=== PATIENT | male | born 1965 | race Two or more races ===

== ENCOUNTER 2019-05-05 19:15 | Inpatient (IN) | payer MEDICAID ==
[~2019-05-05] VITALS: Ht 170.2 cm; Wt 78.9 kg
[2019-05-05 19:15] VITALS: BP 172/82
[2019-05-05] MEDS ORDERED: Metoprolol 25mg tab ORAL ONE (19:30)
[2019-05-05] MEDS ORDERED: Metoprolol 25mg tab ONE (19:41)
--- NOTE | 2019-05-05 20:03 | Diagnostic Imaging Report ---
Indications: Seizures Technique: Spiral acquisitions obtained through the brain. Angled axial and coronal 5 x 5 mm slices were reconstructed. Total dose length product 1269 mGycm. CTDI vol(s) 62 mGy. Dose reduction achieved using automated exposure control Comparison: None. Findings: No acute intracranial hemorrhage or edema. No mass effect nor midline shift. Normal size ventricles and extra axial CSF spaces. Normal garland-white differentiation. Intact calvarium. Visualized orbits and sinuses are unremarkable. Impression: Negative This agrees with the preliminary interpretation provided overnight by [facility] teleradiology service. The CT scanner at [facility] is accredited by the [employer] and the scans are performed using protocols designed to limit radiation exposure to as low as reasonably achievable to attain images of sufficient resolution adequate for diagnostic evaluation.
[2019-05-05 20:05] LABS: BASOPHILS % (AUTO) 1.5 % (0.0-2.0); EOSINOPHILS % (AUTO) 0.9 % (0.0-3.0); HEMATOCRIT 48.1 % (42.0-52.0); HEMOGLOBIN 16.3 G/DL (14.2-18.0); LYMPHOCYTES % (AUTO) 14.9 % (20.0-45.0); MEAN CORPUSCULAR VOLUME 83 FL (80-99); MONOCYTES % (AUTO) 6.3 % (1.0-10.0); NEUTROPHILS % (AUTO) 76.4 % (45.0-75.0); PLATELET COUNT 196 K/UL (150-450); RED BLOOD COUNT 5.77 M/UL (4.70-6.10); RED CELL DISTRIBUTION WIDTH 12.4 % (11.6-14.8); WHITE BLOOD COUNT 7.2 K/UL (4.8-10.8)
[2019-05-05 20:43] LABS: ANION GAP 23 mmol/L (5-15); BLOOD UREA NITROGEN 10 mg/dL (7-18); CALCIUM 7.8 MG/DL (8.5-10.1); CARBON DIOXIDE 16 MMOL/L (21-32); CHLORIDE 103 MMOL/L (98-107); POTASSIUM 4.2 MMOL/L (3.5-5.1); SODIUM 142 MMOL/L (136-145)
[2019-05-05 20:54] LABS: ALANINE AMINOTRANSFERASE 72 U/L (12-78); ALBUMIN 3.1 G/DL (3.4-5.0); ALBUMIN/GLOBULIN RATIO 0.7 (1.0-2.7); ALKALINE PHOSPHATASE 142 U/L (46-116); ASPARTATE AMINO TRANSFERASE 89 U/L (15-37); BILIRUBIN,TOTAL 0.4 MG/DL (0.2-1.0)
[2019-05-05] MEDS ORDERED: Insulin Human Regular 100units/ml 3ml IV ONE (21:15)
[2019-05-05] MEDS ORDERED: Omnipaue 350mg/ml 100ml vial INJ PRN (21:30)
[2019-05-05] MEDS ORDERED: LORazepam Inj 2mg/ml 1ml IV ONE (21:30)
[2019-05-05 21:35] VITALS: BP 150/84
--- NOTE | 2019-05-05 21:38 | Emergency Room Report ---
History of Present Illness General Chief Complaint: Seizure Source: Patient, EMS (JuanDerek salazar DO) Present Illness HPI Patient initially presents with reports of visualized seizure activity Upon arrival the patient reports that he has never had a seizure before He does drink alcohol regularly and does report drinking alcohol earlier today Denies any headache denies any chest pain he does feel anxious and has palpitations denies any vomiting or diarrhea (Derek Combs DO) Allergies: Coded Allergies: No Known Allergies (Unverified , 05/05/19) Patient History Past Medical History: see triage record Reviewed Nursing Documentation: PMH: Agreed; PSxH: Agreed (Derek Combs DO) Nursing Documentation-PMH Past Medical History: No History, Except For Hx Diabetes: Yes Hx Seizures: Yes (Derek Combs DO) Review of Systems All Other Systems: negative except mentioned in HPI (JuanDerek salazar DO) Physical Exam Vital Signs Date Time Temp Pulse Resp B/P (MAP) Pulse Ox O2 Delivery O2 Flow Rate FiO2 05/05/19 19:09 98.8 130 16 170/100 (123) 98 Room Air 05/05/19 19:15 98 Sp02 EP Interpretation: reviewed, normal General Appearance: other - Anxious Head: normocephalic, atraumatic Eyes: bilateral eye PERRL, bilateral eye EOMI ENT: hearing grossly normal, normal pharynx, TMs + canals normal, uvula midline Neck: full range of motion, supple, no meningismus, no bony tend Respiratory: no respiratory distress, no retraction, no accessory muscle use, crackles - Bilaterally Cardiovascular #1: normal peripheral pulses, no edema, no gallop, no JVD, no murmur, tachycardia Gastrointestinal: normal bowel sounds, non tender, soft, no mass, no organomegaly, non-distended, no guarding, no hernia, no pulsatile mass, no rebound Genitourinary: no CVA tenderness Musculoskeletal: normal inspection Neurologic: motor strength/tone normal, 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 nml as tested, oriented x3 , sensory intact, responsive Psychiatric: mood/affect normal Skin: no rash Lymphatic: normal inspection, no adenopathy (Derek Combs DO) Medical Decision Making Diagnostic Impression: Primary Impression: alcohol disease Additional Impressions: diabetes seizure Alcohol withdrawal Qualified Codes: F10.230 - Alcohol dependence with withdrawal, uncomplicated Community acquired pneumonia Qualified Codes: J18.9 - Pneumonia, unspecified organism Alcoholic fatty liver Acidosis ER Course Given the patient's initial history and presentation multiple differentials and consideration including but not limited to dehydration, withdrawal symptoms acidosis, Patient's glucose level is not significantly elevated however patient shows signs of acidosis ABG is obtained and does show Decreased pH Also showing increased lactic acid patient's x-ray was abnormal on the right side and CT Shows further findings with multiple differentials please refer to the note for specifics Patient has also presented with questionable seizure therefore CT was obtained which does not show any acute process at this time patient has multiple abnormal findings and requires inpatient care Labs Test 05/05/19 19:38 05/05/19 20:18 05/05/19 21:00 White Blood Count 7.2 K/UL (4.8-10.8) Red Blood Count 5.77 M/UL (4.70-6.10) Hemoglobin 16.3 G/DL (14.2-18.0) Hematocrit 48.1 % (42.0-52.0) Mean Corpuscular Volume 83 FL (80-99) Mean Corpuscular Hemoglobin 28.3 PG (27.0-31.0) Mean Corpuscular Hemoglobin Concent 34.0 G/DL (32.0-36.0) Red Cell Distribution Width 12.4 % (11.6-14.8) Platelet Count 196 K/UL (150-450) Mean Platelet Volume 5.7 FL (6.5-10.1) Neutrophils (%) (Auto) 76.4 % (45.0-75.0) Lymphocytes (%) (Auto) 14.9 % (20.0-45.0) Monocytes (%) (Auto) 6.3 % (1.0-10.0) Eosinophils (%) (Auto) 0.9 % (0.0-3.0) Basophils (%) (Auto) 1.5 % (0.0-2.0) Sodium Level 142 MMOL/L (136-145) Potassium Level 4.2 MMOL/L (3.5-5.1) Chloride Level 103 MMOL/L (98-107) Carbon Dioxide Level 16 MMOL/L (21-32) Anion Gap 23 mmol/L (5-15) Blood Urea Nitrogen 10 mg/dL (7-18) Creatinine 1.0 MG/DL (0.55-1.30) Estimat Glomerular Filtration Rate > 60 mL/min (>60) Glucose Level 305 MG/DL (74-106) Calcium Level 7.8 MG/DL (8.5-10.1) Total Bilirubin 0.4 MG/DL (0.2-1.0) Aspartate Amino Transf (AST/SGOT) 89 U/L (15-37) Alanine Aminotransferase (ALT/SGPT) 72 U/L (12-78) Alkaline Phosphatase 142 U/L (46-116) Total Protein 7.5 G/DL (6.4-8.2) Albumin 3.1 G/DL (3.4-5.0) Globulin 4.4 g/dL Albumin/Globulin Ratio 0.7 (1.0-2.7) Serum Alcohol 286 mg/dL Arterial Blood pH 7.316 (7.350-7.450) Arterial Blood Partial Pressure CO2 26.3 mmHg (35.0-45.0) Arterial Blood Partial Pressure O2 90.9 mmHg (75.0-100.0) Arterial Blood HCO3 13.1 mmol/L (22.0-26.0) Arterial Blood Oxygen Saturation 96.0 % (95-100) Arterial Blood Base Excess -11.2 (-2-2) Luis Test Positive (Derek Combs DO) ER Course Patient signed out to me. He came in with possible seizure secondary to alcohol. He is getting tremulous and was given Ativan here. CT scan showed a right upper lobe infiltrate. No pulmonary embolism. Antibiotics given. Patient will be admitted because antibiotics and monitoring. I discussed the case with Dr. Spaulding who will admit. (Edmund Martines MD) EKG Diagnostic Results Rate: normal Rhythm: NSR ST Segments: no acute changes (Derek Combs DO) Rhythm Strip Diag. Results EP Interpretation: yes Rate: 88 Rhythm: NSR, no PVC's, no ectopy (Derek Combs DO) Chest X-Ray Diagnostic Results Chest X-Ray Diagnostic Results : Chest X-Ray Ordered: Yes # of Views/Limited/Complete: 1 View Indication: Chest Pain EP Interpretation: Yes Interpretation: no pneumothorax, other - Right upper lobe increased markings , heart size normal Impression: Other - Right upper lobe abnormal marking Electronically Signed by: Derek Combs DO (Derek Combs DO) CT/MRI/US Diagnostic Results CT/MRI/US Diagnostic Results : Impression CT chestImpression: No evidence of acute pulmonary embolus or other acute thoracic vascular pathology 3.5 x 2.2 x 2 cm right apical opacity linear opacities and interstitial septal thickening. Presence of associated bronchiectasis makes it most likely that this represents an area of confluent fibrosis/cicatrization. However, this could also represent an area of neoplasm or acute infiltrate. There is some central cavitation which probably just represents an area of bronchiectasis, but questionable nodule within the central lucency raises possibility of a fungus ball, so mycotic etiologies should also be considered. Other scattered areas of scarring demonstrated on the right. Nonspecific minimal groundglass opacity is seen in the left lower lobe. Fatty liver This agrees with the preliminary interpretation provided overnight by [facility] telerad[facility] service. CT head:NAD (Derek Combs DO) CT/MRI/US Diagnostic Results : Imaging Test Ordered: CT chest Impression Read by radiologist. Consolidation in the posterior right upper lobe. Fatty liver. (Edmund Martines MD) Last Vital Signs Date Time Temp Pulse Resp B/P (MAP) Pulse Ox O2 Delivery O2 Flow Rate FiO2 05/05/19 19:15 128 16 Room Air 98 05/05/19 19:15 98.8 172/82 98 Status: improved (Derek Combs DO) Status: improved (Edmund Martines MD) Disposition: ADMITTED INPATIENT Condition: Serious Scripts Unable to Obtain Active Prescriptions or Reported Meds Referrals: [facility] Huseyin Young. [facility] Derek Combs DO May 05, 2019 21:38 Edmund Martines MD May 05, 2019 23:57
[2019-05-05] MEDS ORDERED: Thiamine 100mg tab ORAL ONE (22:00)
[2019-05-05] MEDS ORDERED: cefTRIAXone 1 GM in NS 55 ML IVPB ONE (22:30)
[2019-05-05] MEDS ORDERED: Azithromycin 500 MG in NS 275 ML IV ONE (22:30)
--- NOTE | 2019-05-05 22:31 | Diagnostic Imaging Report ---
ndication: Dyspnea, chest pain, shortness of breath Technique: IV administration nonionic contrast. Spiral acquisitions obtained from the lung bases to the lung apices. Multiplanar and 3-D reconstructions were generated. Total dose length product 695 mGycm. CTDIvol(s) 82 mGy. Dose reduction achieved using automated exposure control Comparison: none Findings: There is adequate opacification of the pulmonary arteries. No intraluminal filling defects or other findings to suggest acute pulmonary embolus demonstrated. Pulmonary arteries are normal in caliber. There is no evidence of right ventricular dilatation. No evidence of thoracic aortic aneurysm or dissection. Normal branching anatomy and caliber of the great neck vessels. The lungs demonstrate a masslike opacity with a central cavitation, possibly a central nodular opacity within the cavitation. This opacity measures approximately 3.5 x 2.2 x 2 cm. There is some associated adjacent pleural thickening. There is some associated bronchiectasis within and adjacent to the lesion. More ill-defined linear opacities are seen adjacent to the lesion. There is some interstitial septal thickening in the right lung apex. Few ill-defined reticular opacities are seen in the anterior inferior right upper lobe. Some scarring is seen in the anterior and medial right lower lobe. Minimal groundglass opacity is seen in the left lower lobe. The heart is upper limits of normal in size. No pericardial effusion. No mediastinal or hilar mass or adenopathy. The thyroid is unremarkable. No axillary or chest wall mass or adenopathy. Included upper abdominal anatomy demonstrates diffuse marked hepatic low-attenuation, consistent with fatty change. Impression: No evidence of acute pulmonary embolus or other acute thoracic vascular pathology 3.5 x 2.2 x 2 cm right apical opacity linear opacities and interstitial septal thickening. Presence of associated bronchiectasis makes it most likely that this represents an area of confluent fibrosis/cicatrization. However, this could also represent an area of neoplasm or acute infiltrate. There is some central cavitation which probably just represents an area of bronchiectasis, but questionable nodule within the central lucency raises possibility of a fungus ball, so mycotic etiologies should also be considered. Other scattered areas of scarring demonstrated on the right. Nonspecific minimal groundglass opacity is seen in the left lower lobe. Fatty liver This agrees with the preliminary interpretation provided overnight by [facility] teleradiology service. The CT scanner at [facility] is accredited by the [employer] and the scans are performed using protocols designed to limit radiation exposure to as low as reasonably achievable to attain images of sufficient resolution adequate for diagnostic evaluation.
[2019-05-06] MEDS: D5NS 1,000 ML IV SCH ×3 (01:36→21:01)
[2019-05-06] MEDS ORDERED: LORazepam Inj 2mg/ml 1ml IV PRN (04:00)
[2019-05-06] MEDS ORDERED: Pneumococcal Vaccine 25mcg/0.5ml IM ONE ×2 (07:15→09:00)
[2019-05-06] MEDS ORDERED: chlordiazePOXIDE 25mg Cap ORAL PRN (07:30)
[2019-05-06 08:00] VITALS: BP 144/89
[2019-05-06] MEDS: chlordiazePOXIDE 5mg Cap ORAL PRN ×2 (08:20→17:45)
[2019-05-06] MEDS ORDERED: Carvedilol 6.25mg Tab ORAL SCH (09:00)
[2019-05-06 09:01] LABS: ANION GAP 18 mmol/L (5-15); BLOOD UREA NITROGEN 7 mg/dL (7-18); CALCIUM 7.4 MG/DL (8.5-10.1); CARBON DIOXIDE 18 MMOL/L (21-32); CHLORIDE 103 MMOL/L (98-107); CREATININE 0.9 MG/DL (0.55-1.30); POTASSIUM 4.2 MMOL/L (3.5-5.1); SODIUM 139 MMOL/L (136-145)
[2019-05-06 09:04] LABS: PHOSPHORUS 1.8 MG/DL (2.5-4.9)
--- NOTE | 2019-05-06 09:48 | Diagnostic Imaging Report ---
Indication: Chest pain Technique: One view of the chest Comparison: none Findings: Masslike opacity is seen in the right lung apex. The lungs and pleural spaces are otherwise clear. Heart size is normal. Impression: Right apical masslike opacity. Please refer to subsequent CT scan report No acute process otherwise
[2019-05-06] MEDS: Carvedilol 12.5mg tab ORAL SCH ×2 (09:56→21:05)
[2019-05-06] MEDS: Thiamine 100mg tab ORAL SCH (09:56)
[2019-05-06] MEDS: Morphine Sulfate 2mg/ml Inj(IV/IM USE ONLY) IVP PRN ×2 (09:58→14:16)
[2019-05-06] MEDS: Levemir Flexpen SUBQ SCH ×2 (10:06→21:09)
--- NOTE | 2019-05-06 11:15 | History and Physical Report ---
DATE OF ADMISSION: 05/05/2019 REASON FOR ADMISSION: 1. Alcohol dependency. 2. Alcohol withdrawal seizure. 3. Pneumonia. HISTORY OF PRESENT ILLNESS: The patient is a 53-year-old gentleman, who presented to the emergency room overnight for further evaluation and care after having a seizure. The patient states that he drinks heavily every day. Had never had a seizure before. Again, drinks heavily on a regular basis. No current headache, chest pain, nausea, vomiting, diarrhea, or shortness of breath. The patient is quite jittery. Feeling he is going through withdrawals. Unclear exactly how much alcohol he drinks per day. He was noted to have a right upper lobe possible pneumonia. ALLERGIES: No known drug allergies. PAST MEDICAL HISTORY: 1. Alcohol dependency. 2. Hypertension. 3. Diabetes mellitus. FAMILY HISTORY: Positive for hypertension. PAST SURGICAL HISTORY: Noncontributory. LABORATORY DATA: Laboratories dated May 05, 2019, sodium 142, potassium 4.2, glucose 305. White cell count 7.2, hemoglobin 16.3, and platelet count 196. PHYSICAL EXAMINATION: VITAL SIGNS: Blood pressure 154/86, respiratory rate 17, pulse 117, temperature 98.4, saturating 99% oxygen on room air. GENERAL: The patient is awake, alert, anxious. HEENT: Extraocular muscles intact. NECK: No lymphadenopathy noted. CARDIOVASCULAR: S1, S2. Tachycardic. PULMONARY: Mild upper rhonchi with basilar rales. ABDOMEN: Nondistended and nontender. EXTREMITIES: No edema. ASSESSMENT AND PLAN: 1. Alcohol withdrawal seizure. At this time, the patient has been given p.r.n. Librium and Ativan. He is currently stable. Will be aggressively hydrated. Will be placed on thiamine and folate to avoid Wernicke-Korsakoff syndrome. We will monitor carefully. 2. Hypertension. We will adjust medications as appropriate. 3. Diabetes mellitus. We will place the patient on metformin and insulin sliding scale, along with Levemir. 4. Pneumonia, right upper lobe and alcoholic. I have consulted Pulmonary for further evaluation and care to rule out for and consider possibility of TB. 5. Dehydration. We will continue IV fluids. 6. GI prophylaxis with famotidine. 7. DVT prophylaxis with SCDs. Seth Richmond MD DR: JHONATHAN JOB#: [id number] CC:
[2019-05-06 12:00] VITALS: BP 139/86
--- NOTE | 2019-05-06 12:13 | Consultation ---
History of Present Illness General Date patient seen: May 06, 2019 Chief Complaint: Seizure Present Illness HPI 53 y/o M with hx of Dm2, ETOH abuse presented to ED on 05/05 with witnessed seizure activity; new onset seizure. He drinks alcohol regularly and drank day of admission. Denies headache, chest pain, vomiting, diarrhea, SOB. Allergies: Coded Allergies: No Known Allergies (Unverified , 05/05/19) Medication History Unable to Obtain Active Prescriptions or Reported Meds Patient History Healthcare decision maker Resuscitation status Full Code Advanced Directive on File Patient History Narrative Pmhx: as above Shx:He does drink alcohol regularly Fhx: non contributory Review of Systems All Other Systems: negative except mentioned in HPI Physical Exam Physical Exam Narrative GENERAL: The patient is awake, alert, anxious. HEENT: Extraocular muscles intact. NECK: No lymphadenopathy noted. CARDIOVASCULAR: S1, S2. Tachycardic. PULMONARY: Mild upper rhonchi with basilar rales. ABDOMEN: Nondistended and nontender. EXTREMITIES: No edema. Last 24 Hour Vital Signs Date Time Temp Pulse Resp B/P (MAP) Pulse Ox O2 Delivery O2 Flow Rate FiO2 05/06/19 09:56 117 154/86 05/06/19 08:30 Room Air 05/06/19 08:00 111 05/06/19 04:00 117 05/06/19 04:00 Room Air 05/06/19 01:42 Room Air 05/06/19 01:35 108 05/06/19 01:10 98.4 104 17 154/86 99 Room Air 99 05/05/19 21:35 98.4 102 17 150/84 99 Room Air 98 05/05/19 19:15 128 16 Room Air 98 05/05/19 19:15 98.8 129 16 172/82 98 Room Air 98 05/05/19 19:09 98.8 130 16 170/100 (123) 98 Room Air Intake and Output 05/05/19 05/06/19 18:59 06:59 Intake Total 5070 ml Output Total 950 ml Balance 4120 ml Intake Oral 120 ml IV Total 4830 ml Other 120 ml Output Urine Total 950 ml # Voids 2 Laboratory Tests Test 05/05/19 19:38 05/05/19 20:18 05/05/19 21:00 05/05/19 22:10 White Blood Count 7.2 K/UL (4.8-10.8) Red Blood Count 5.77 M/UL (4.70-6.10) Hemoglobin 16.3 G/DL (14.2-18.0) Hematocrit 48.1 % (42.0-52.0) Mean Corpuscular Volume 83 FL (80-99) Mean Corpuscular Hemoglobin 28.3 PG (27.0-31.0) Mean Corpuscular Hemoglobin Concent 34.0 G/DL (32.0-36.0) Red Cell Distribution Width 12.4 % (11.6-14.8) Platelet Count 196 K/UL (150-450) Mean Platelet Volume 5.7 FL (6.5-10.1) L Neutrophils (%) (Auto) 76.4 % (45.0-75.0) H Lymphocytes (%) (Auto) 14.9 % (20.0-45.0) L Monocytes (%) (Auto) 6.3 % (1.0-10.0) Eosinophils (%) (Auto) 0.9 % (0.0-3.0) Basophils (%) (Auto) 1.5 % (0.0-2.0) Sodium Level 142 MMOL/L (136-145) Potassium Level 4.2 MMOL/L (3.5-5.1) Chloride Level 103 MMOL/L (98-107) Carbon Dioxide Level 16 MMOL/L (21-32) L Anion Gap 23 mmol/L (5-15) H Blood Urea Nitrogen 10 mg/dL (7-18) Creatinine 1.0 MG/DL (0.55-1.30) Estimat Glomerular Filtration Rate > 60 mL/min (>60) Glucose Level 305 MG/DL (74-106) H Calcium Level 7.8 MG/DL (8.5-10.1) L Total Bilirubin 0.4 MG/DL (0.2-1.0) Aspartate Amino Transf (AST/SGOT) 89 U/L (15-37) H Alanine Aminotransferase (ALT/SGPT) 72 U/L (12-78) Alkaline Phosphatase 142 U/L (46-116) H Total Protein 7.5 G/DL (6.4-8.2) Albumin 3.1 G/DL (3.4-5.0) L Globulin 4.4 g/dL Albumin/Globulin Ratio 0.7 (1.0-2.7) L Serum Alcohol 286 mg/dL Arterial Blood pH 7.316 (7.350-7.450) Arterial Blood Partial Pressure CO2 26.3 mmHg (35.0-45.0) L Arterial Blood Partial Pressure O2 90.9 mmHg (75.0-100.0) Arterial Blood HCO3 13.1 mmol/L (22.0-26.0) *L Arterial Blood Oxygen Saturation 96.0 % (95-100) Arterial Blood Base Excess -11.2 (-2-2) *L Luis Test Positive Lactic Acid Level 3.70 mmol/L (0.4-2.0) H Test 05/05/19 23:35 05/06/19 04:00 05/06/19 08:30 Lactic Acid Level 2.80 mmol/L (0.66-2.22) H 3.50 mmol/L (0.4-2.0) H 3.00 mmol/L (0.66-2.22) H Sodium Level 139 MMOL/L (136-145) Potassium Level 4.2 MMOL/L (3.5-5.1) Chloride Level 103 MMOL/L (98-107) Carbon Dioxide Level 18 MMOL/L (21-32) L Anion Gap 18 mmol/L (5-15) H Blood Urea Nitrogen 7 mg/dL (7-18) Creatinine 0.9 MG/DL (0.55-1.30) Estimat Glomerular Filtration Rate > 60 mL/min (>60) Glucose Level 268 MG/DL (74-106) H Calcium Level 7.4 MG/DL (8.5-10.1) L Phosphorus Level 1.8 MG/DL (2.5-4.9) L Magnesium Level 1.7 MG/DL (1.8-2.4) L Height (Feet): 5 Height (Inches): 7.00 Weight (Pounds): 180 Medications Current Medications Medications (Trade) Dose Ordered Sig/Ricky Route PRN Reason Start Time Stop Time Status Last Admin Dose Admin Acetaminophen (Tylenol) 650 mg Q4H PRN ORAL Mild Pain (Pain Scale 1-3) 05/06/19 00:00 06/05/19 00:00 Azithromycin 500 mg/Sodium Chloride 275 ml @ 275 mls/hr QHS IV 05/06/19 21:00 05/13/19 20:59 Carvedilol (Coreg) 12.5 mg Q12HR ORAL 05/06/19 09:00 06/05/19 08:59 05/06/19 09:56 Ceftriaxone Sodium 1 gm/ Sodium Chloride 55 ml @ 110 mls/hr Q24H IVPB 05/06/19 22:00 05/13/19 21:59 Chlordiazepoxide (Librium) 5 mg Q8H PRN ORAL For Anxiety 1st choice 05/06/19 07:45 05/13/19 07:44 05/06/19 08:20 Chlordiazepoxide (Librium) 20 mg Q8H PRN ORAL For Anxiety 1st choice 05/06/19 07:45 05/13/19 07:29 05/06/19 08:20 Dextrose (Dextrose 50%) 25 ml Q30M PRN IV Hypoglycemia 05/06/19 00:00 06/05/19 00:00 Dextrose (Dextrose 50%) 50 ml Q30M PRN IV Hypoglycemia 05/06/19 00:00 06/05/19 00:00 Dextrose/Sodium Chloride 1,000 ml @ 100 mls/hr Q10H IV 05/06/19 00:55 06/05/19 00:54 05/06/19 10:41 Famotidine (Pepcid) 40 mg DAILY ORAL 05/06/19 09:00 06/05/19 08:59 05/06/19 09:56 Influenza Virus Vaccine Quadrival (Flu Vaccine) 0.5 ml ONCE ONCE IM 05/06/19 07:15 05/06/19 07:16 UNV Insulin Aspart (NovoLOG) BEFORE MEALS AND HS SUBQ 05/06/19 11:30 06/05/19 11:29 Insulin Detemir (Levemir) 8 units Q12HR SUBQ 05/06/19 09:00 06/05/19 08:59 05/06/19 10:06 Iohexol (Omnipaque) 100 mg NOW PRN INJ Radiology Procedure 05/05/19 21:30 05/07/19 21:23 Lorazepam (Ativan 2mg/ml 1ml) 1 mg Q6HR PRN IV For Anxiety 05/06/19 04:00 05/13/19 03:59 05/06/19 04:26 Morphine Sulfate (Morphine Sulfate) 1 mg Q4H PRN IVP Moderate Pain (Pain Scale 4-6) 05/06/19 07:30 05/13/19 07:29 05/06/19 09:58 Ondansetron HCl (Zofran) 4 mg Q6H PRN IVP Nausea & Vomiting 05/06/19 00:00 06/05/19 00:00 05/06/19 03:24 Pneumococcal Polyvalent Vaccine (Pneumovax) 0.5 ml ONCE ONCE IM 05/06/19 07:15 05/06/19 07:16 UNV Thiamine HCl (Vitamin B1) 100 mg DAILY ORAL 05/06/19 09:00 06/05/19 08:59 05/06/19 09:56 Assessment/Plan Assessment/Plan: Abx: Ceftriaxone 05/05- Azithromycin 05/05- Assessment: New onset seizure- likely from alcohol- r/o intracranial pathology -CT head wo: no acute findings Afebrile No leukocytosis Cavitary lung lesion w/ fibrosis- this is likely residual from prior pulmonary TB which has now been treated and presence of fungal ball; patient with no cough , night sweats, fever, or wt loss- doubt Active/recurrence TB -CTA chest: No evidence of acute pulmonary embolus or other acute thoracic vascular pathology. 3.5 x 2.2 x 2 cm right apical opacity linear opacities and interstitial septal thickening. Presence of associated bronchiectasis makes it most likely that this represents an area of confluent fibrosis/cicatrization. However, this could also represent an area of neoplasm or acute infiltrate. There is some central cavitation which probably just represents an area of bronchiectasis, but questionable nodule within the central lucency raises possibility of a fungus ball, so mycotic etiologies should also be considered. Other scattered areas of scarring demonstrated on the right. Nonspecific minimal groundglass opacity is seen in the left lower lobe. Fatty liver -CXR: Right apical masslike opacity. Please refer to subsequent CT scan report. No acute process otherwise hx of pulmonary TB- treated about 10 years ago Dm2 ETOH abuse Plan: -D/c empiric Ceftriaxone #2 and azithromycin #2 and monitor off abx -patient with no cough, fever or leukocytosis -f/u cx -Monitor CBC/CMP, temperatures -sp cx -HIV ab, Fungitell, Asp Ag, hep panel -consider MRI brain Thank you for conulting [facility]. Will continue to follow along with you. Discussed with ROSSI. Nikky Vogel M.D. May 06, 2019 12:13
[2019-05-06] MEDS: NovoLOG Insulin Flexpen SUBQ SCH ×3 (12:56→21:08)
--- NOTE | 2019-05-06 13:05 | Cardiology Report ---
APPROVED REPORT EKG Measurement Heart [id number] Sinus tachycardia T wave abnormality, consider inferior ischemia Abnormal ECG
[2019-05-06] MEDS ORDERED: metroNIDAZOLE 500mg tab ORAL SCH (14:00)
[2019-05-06 16:00] VITALS: BP 154/84
--- NOTE | 2019-05-06 16:30 | Consultation ---
DATE OF CONSULTATION: 05/06/2019 PULMONARY CONSULTATION CONSULTING PHYSICIAN: Fransico Orta M.D. HISTORY OF PRESENT ILLNESS: This is a 53-year-old male, who came to the hospital after having a seizure. The patient reports this is the first time he had seizure and he reports heavy alcohol use. He was noted to have an abnormal x-ray suspicious for a right lung pneumonia. Review of imaging studies shows right apical masslike density, which on CT chest shows scarring in the anterior and medial right lower lobe. There is a masslike opacity with cavitation in the right upper lobe. PAST HISTORY: Alcohol use, hypertension, diabetes mellitus. PREVIOUS SURGERIES: None reported. REVIEW OF SYSTEMS: Denies any headaches, hematemesis, melena, hematochezia, night sweats, or weight loss. PHYSICAL EXAMINATION: GENERAL: Reveals a 53-year-old male. HEENT: Unremarkable. LUNGS: Clear breath sounds bilaterally. HEART: Normal heart sounds. ABDOMEN: Soft. EXTREMITIES: There is no edema. LABORATORY DATA: Lab testing shows lactic acid 3.7, now 3.0. ABGs pH 7.31, pCO2 26, pO2 90, glucose 268. White count 7.2. IMPRESSION: 1. Right upper lobe cavitary lesion. 2. Alcohol dependence. 3. Hypertension. DISCUSSION: 1. Admit to the hospital. 2. We will place on respiratory isolation. 3. He will need PPD and TB QuantiFERON gold. 4. We will get sputum for AFB. This may most likely be an anaerobic right upper lobe cavity due to his history of alcohol abuse. However tuberculosis. Fransico Orta M.D. DR: LACIE JOB#: [id number] CC:
[2019-05-06 20:00] VITALS: BP 146/78
[2019-05-06] MEDS ORDERED: Azithromycin 500 MG in NS 275 ML IV SCH (21:00)
[2019-05-06] MEDS ORDERED: cefTRIAXone 1 GM in NS 55 ML IVPB SCH (22:00)
[2019-05-07] VITALS: BP 142/75
[2019-05-07 04:00] VITALS: BP 140/79
[2019-05-07] MEDS: D5NS 1,000 ML IV SCH (06:30)
[2019-05-07] MEDS: NovoLOG Insulin Flexpen SUBQ SCH ×4 (06:35→20:14)
[2019-05-07 06:38] LABS: ANION GAP 14 mmol/L (5-15); BLOOD UREA NITROGEN 3 mg/dL (7-18); CALCIUM 7.8 MG/DL (8.5-10.1); CARBON DIOXIDE 20 MMOL/L (21-32); CHLORIDE 102 MMOL/L (98-107); CREATININE 0.8 MG/DL (0.55-1.30); POTASSIUM 3.9 MMOL/L (3.5-5.1); SODIUM 136 MMOL/L (136-145)
[2019-05-07] MEDS: Morphine Sulfate 2mg/ml Inj(IV/IM USE ONLY) IVP PRN ×2 (06:53→13:27)
--- NOTE | 2019-05-07 07:48 | Nephrology Progress Note ---
Assessment/Plan Assessment/Plan: A/P 1. Alcohol withdrawal seizure. - resolved, MRI Brain - DC tomorrow 2. Hypertension. Stable 3. Diabetes mellitus. metformin and insulin sliding scale, along with Levemir. 4. Pneumonia, right upper lobe and alcoholic. - appreciate ID. Off all Abx, monitor 5. Dehydration. continue IV fluids. 6. GI prophylaxis with famotidine. 7. DVT prophylaxis with SCDs. Subjective Date patient seen: May 07, 2019 Time patient seen: 07:45 ROS Limited/Unobtainable: No Allergies: Coded Allergies: No Known Allergies (Unverified , 05/05/19) Subjective Patient much improved and in no distress Objective Last 24 Hour Vital Signs Date Time Temp Pulse Resp B/P (MAP) Pulse Ox O2 Delivery O2 Flow Rate FiO2 05/07/19 07:23 98.1 05/07/19 04:00 98.1 92 20 140/79 (99) 98 05/07/19 04:00 85 05/07/19 03:58 Room Air 05/07/19 00:00 Room Air 05/07/19 00:00 98.2 89 16 142/75 (97) 98 05/06/19 23:45 88 05/06/19 21:05 97 146/78 05/06/19 20:00 Room Air 05/06/19 20:00 98.1 97 20 146/78 (100) 100 05/06/19 19:45 99 05/06/19 16:11 105 05/06/19 16:10 Room Air 05/06/19 16:00 99.6 106 20 154/84 (107) 99 05/06/19 12:00 113 05/06/19 12:00 Room Air 05/06/19 12:00 98.7 100 20 139/86 (103) 98 05/06/19 09:56 117 154/86 05/06/19 08:30 Room Air 05/06/19 08:00 98.0 118 22 144/89 (107) 97 05/06/19 08:00 111 Intake and Output 05/06/19 05/07/19 19:00 07:00 Intake Total 460 ml 1300 ml Output Total 850 ml Balance -390 ml 1300 ml Intake Oral 360 ml 300 ml IV Total 100 ml 1000 ml Output Urine Total 850 ml # Voids 3 # Bowel Movements 3 Laboratory Tests 05/06/19 08:30: Sodium Level 139, Potassium Level 4.2, Chloride Level 103, Carbon Dioxide Level 18L, Anion Gap 18H, Blood Urea Nitrogen 7, Creatinine 0.9, Estimat Glomerular Filtration Rate > 60, Glucose Level 268H, Lactic Acid Level 3.00H, Calcium Level 7.4L, Phosphorus Level 1.8L, Magnesium Level 1.7L 05/06/19 08:35: HIV (1&2) Antibody Rapid Negative 05/06/19 12:20: TB Test (T-Spot) [Pending], TB Test Nil Control (T-Spot) [Pending], TB Test Panel A (T-Spot) [Pending], TB Test Panel B (T-Spot) [Pending], TB Test Positive Control (T-Spot) [Pending] 05/07/19 04:30: Sodium Level 136, Potassium Level 3.9, Chloride Level 102, Carbon Dioxide Level 20L, Anion Gap 14, Blood Urea Nitrogen 3L, Creatinine 0.8, Estimat Glomerular Filtration Rate > 60, Glucose Level 256H, Calcium Level 7.8L, Hepatitis A IgM Antibody [Pending], Hepatitis B Surface Antigen [Pending], Hepatitis B Core IgM Antibody [Pending], Hepatitis C Antibody [Pending], HIV-1 RNA (PCR) log10 Value [Pending], HIV-1 RNA Ultraquantitative (PCR) [Pending] Height (Feet): 5 Height (Inches): 7.00 Weight (Pounds): 174 General Appearance: no apparent distress, alert EENT: normal ENT inspection Neck: normal alignment, supple Cardiovascular: normal rate, regular rhythm Abdomen: non tender, soft Edema: no edema noted Arm (L), no edema noted Arm (R), no edema noted Leg (L), no edema noted Leg (R), no edema noted Pedal (L), no edema noted Pedal (R), no edema noted Generalized Seth Richmond MD May 07, 2019 07:48
[2019-05-07 08:00] VITALS: BP 143/86
[2019-05-07] MEDS: Thiamine 100mg tab ORAL SCH (09:22)
[2019-05-07] MEDS: Carvedilol 12.5mg tab ORAL SCH ×2 (09:22→20:12)
--- NOTE | 2019-05-07 09:22 | Pulmonology Progress Note ---
Assessment/Plan Assessment/Plan IMPRESSION: 1. Right upper lobe cavitary lesion. 2. Alcohol dependence. 3. Hypertension. DISCUSSION: Continue present care ID notes reviewed Dc planning Fransico Orta M.D. Subjective Interval Events: None new; seen by ID Constitutional: Reports: no symptoms HEENT: Repors: no symptoms Respiratory: Reports: no symptoms Cardiovascular: Reports: no symptoms Gastrointestinal/Abdominal: Reports: no symptoms Allergies: Coded Allergies: No Known Allergies (Unverified , 05/05/19) Objective Last 24 Hour Vital Signs Date Time Temp Pulse Resp B/P (MAP) Pulse Ox O2 Delivery O2 Flow Rate FiO2 05/07/19 08:00 99.0 98 16 143/86 (105) 98 05/07/19 07:23 98.1 05/07/19 04:00 98.1 92 20 140/79 (99) 98 05/07/19 04:00 85 05/07/19 03:58 Room Air 05/07/19 00:00 Room Air 05/07/19 00:00 98.2 89 16 142/75 (97) 98 05/06/19 23:45 88 05/06/19 21:05 97 146/78 05/06/19 20:00 Room Air 05/06/19 20:00 98.1 97 20 146/78 (100) 100 05/06/19 19:45 99 05/06/19 16:11 105 05/06/19 16:10 Room Air 05/06/19 16:00 99.6 106 20 154/84 (107) 99 05/06/19 12:00 113 05/06/19 12:00 Room Air 05/06/19 12:00 98.7 100 20 139/86 (103) 98 05/06/19 09:56 117 154/86 Intake and Output 05/06/19 05/07/19 19:00 07:00 Intake Total 460 ml 1300 ml Output Total 850 ml Balance -390 ml 1300 ml Intake Oral 360 ml 300 ml IV Total 100 ml 1000 ml Output Urine Total 850 ml # Voids 3 # Bowel Movements 3 General Appearance: no acute distress HEENT: normocephalic Respiratory/Chest: chest wall non-tender, decreased breath sounds Cardiovascular: normal peripheral pulses, normal rate Abdomen: normal bowel sounds Microbiology Date/Time Source Procedure Growth Status 05/05/19 22:15 Blood Blood Culture - Preliminary NO GROWTH AFTER 24 HOURS Resulted 05/05/19 22:00 Blood Blood Culture - Preliminary NO GROWTH AFTER 24 HOURS Resulted Laboratory Tests 05/06/19 12:20: TB Test (T-Spot) [Pending], TB Test Nil Control (T-Spot) [Pending], TB Test Panel A (T-Spot) [Pending], TB Test Panel B (T-Spot) [Pending], TB Test Positive Control (T-Spot) [Pending] 05/07/19 04:30: Sodium Level 136, Potassium Level 3.9, Chloride Level 102, Carbon Dioxide Level 20L, Anion Gap 14, Blood Urea Nitrogen 3L, Creatinine 0.8, Estimat Glomerular Filtration Rate > 60, Glucose Level 256H, Calcium Level 7.8L, Hepatitis A IgM Antibody [Pending], Hepatitis B Surface Antigen [Pending], Hepatitis B Core IgM Antibody [Pending], Hepatitis C Antibody [Pending], HIV-1 RNA (PCR) log10 Value [Pending], HIV-1 RNA Ultraquantitative (PCR) [Pending] Current Medications Medications (Trade) Dose Ordered Sig/Ricky Route PRN Reason Start Time Stop Time Status Last Admin Dose Admin Acetaminophen (Tylenol) 650 mg Q4H PRN ORAL Mild Pain (Pain Scale 1-3) 05/06/19 00:00 06/05/19 00:00 Carvedilol (Coreg) 12.5 mg Q12HR ORAL 05/06/19 09:00 06/05/19 08:59 05/06/19 21:05 Chlordiazepoxide (Librium) 5 mg Q8H PRN ORAL For Anxiety 1st choice 05/06/19 07:45 05/13/19 07:44 05/06/19 17:45 Chlordiazepoxide (Librium) 20 mg Q8H PRN ORAL For Anxiety 1st choice 05/06/19 07:45 05/13/19 07:29 05/06/19 17:45 Dextrose (Dextrose 50%) 25 ml Q30M PRN IV Hypoglycemia 05/06/19 00:00 1/2/20 00:00 Dextrose (Dextrose 50%) 50 ml Q30M PRN IV Hypoglycemia 05/06/19 00:00 06/05/19 00:00 Famotidine (Pepcid) 40 mg DAILY ORAL 05/06/19 09:00 06/05/19 08:59 05/06/19 09:56 Influenza Virus Vaccine Quadrival (Flu Vaccine) 0.5 ml ONCE ONCE IM 05/06/19 07:15 05/06/19 07:16 UNV Insulin Aspart (NovoLOG) BEFORE MEALS AND HS SUBQ 05/06/19 11:30 06/05/19 11:29 05/07/19 06:35 Insulin Detemir (Levemir) 8 units Q12HR SUBQ 05/06/19 09:00 06/05/19 08:59 05/06/19 21:09 Iohexol (Omnipaque) 100 mg NOW PRN INJ Radiology Procedure 05/05/19 21:30 05/07/19 21:23 Lorazepam (Ativan 2mg/ml 1ml) 1 mg Q6HR PRN IV For Anxiety 05/06/19 04:00 05/13/19 03:59 05/06/19 04:26 Magnesium Sulfate 100 ml @ 100 mls/hr ONCE ONCE IVPB 05/07/19 09:00 05/07/19 09:59 Morphine Sulfate (Morphine Sulfate) 1 mg Q4H PRN IVP Moderate Pain (Pain Scale 4-6) 05/06/19 07:30 05/13/19 07:29 05/07/19 06:53 Ondansetron HCl (Zofran) 4 mg Q6H PRN IVP Nausea & Vomiting 05/06/19 00:00 06/05/19 00:00 05/06/19 03:24 Pneumococcal Polyvalent Vaccine (Pneumovax) 0.5 ml ONCE ONCE IM 05/06/19 07:15 05/06/19 07:16 UNV Potassium Phosphate 20 mm/ Sodium Chloride 281.6667 ml @ 46.944 m... ONCE ONCE IV 05/07/19 10:00 05/07/19 15:59 Thiamine HCl (Vitamin B1) 100 mg DAILY ORAL 05/06/19 09:00 06/05/19 08:59 05/06/19 09:56 Fransico Orta MD May 07, 2019 09:22
[2019-05-07] MEDS: Levemir Flexpen SUBQ SCH ×2 (09:24→20:14)
--- NOTE | 2019-05-07 09:48 | Diagnostic Imaging Report ---
Indication: Seizure Technique: The head was imaged in a 1.5 [place] magnet. Sequences obtained include sagittal and axial T1 FLAIR, axial T2 fast spin echo with fat saturation, axial T2* GRE, axial T2 FLAIR, diffusion and ADC map. Comparison: None There is a tiny focus of diffusion restriction measuring about 3 mm at the periphery of the right parietal lobe (#19/series 3) possibly artifact. Correlate for tiny acute infarct. There is no associated edema. There is no mass effect or evidence of hemorrhage. Generalized atrophy of the brain demonstrated, mild in degree slight prominence of the ventricles and cortical sulci and basal cisterns. Flow voids are seen within the major vessels. Bone marrow signals unremarkable. Corpus callosum and sella appear unremarkable. IMPRESSION: Questionable tiny acute infarct in the right parietal lobe. This could be artifact. Please correlate clinically. No associated edema or hemorrhage. Mild generalized atrophy of the brain
[2019-05-07] MEDS ORDERED: Potassium Phosphate 20 MM in NS 275 ML IV ONE (10:00)
[2019-05-07] MEDS ORDERED: Pneumococcal Vaccine 25mcg/0.5ml IM ONE (11:15)
[2019-05-07 12:00] VITALS: BP 137/70
[2019-05-07] MEDS ORDERED: LORazepam Inj 2mg/ml 1ml IV PRN (12:00)
--- NOTE | 2019-05-07 13:17 | Infectious Diseases Prog Note ---
Assessment/Plan Assessment/Plan Assessment: New onset seizure- likely from alcohol- ?questionable CVA on MRI -CT head wo: no acute findings -Brain MRI: Questionable tiny acute infarct in the right parietal lobe. This could be artifact.Please correlate clinically. No associated edema or hemorrhage. 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 3.5 x 2.2 x 2 cm right apical opacity linear opacities and interstitial septal thickening. Presence of associated bronchiectasis makes it most likely that this represents an area of confluent fibrosis/cicatrization. However, this could also represent an area of neoplasm or acute infiltrate. There is some central cavitation which probably just represents an area of bronchiectasis, but questionable nodule within the central lucency raises possibility of a fungus ball, so mycotic etiologies should also be considered. Other scattered areas of scarring demonstrated on the right. Nonspecific minimal groundglass opacity is seen in the left lower lobe. Fatty liver -CXR: Right apical masslike opacity. Please refer to subsequent CT scan report. No acute process otherwise hx of pulmonary TB- treated about 10 years ago Dm2 ETOH abuse Plan: -Start empiric IV Vancomycin for gram positive bacteremia -patient with no cough, fever or leukocytosis -05/06 SP Ceftriaxone #2, Azithromycin #2 -f/u cx -Monitor CBC/CMP, temperatures -f/u sp cx, Fungitell, Asp Ag, hep panel -REpeat Bcx x2 Thank you for conulting [facility]. Will continue to follow along with you. Discussed with RN. Subjective Allergies: Coded Allergies: No Known Allergies (Unverified , 05/05/19) Subjective afebrile no leukocytosis bacteremic Objective Vital Signs Last 24 Hour Vital Signs Date Time Temp Pulse Resp B/P (MAP) Pulse Ox O2 Delivery O2 Flow Rate FiO2 05/07/19 12:00 Room Air 05/07/19 12:00 98.2 87 18 137/70 (92) 98 05/07/19 09:22 98 143/86 12/4/19 08:00 Room Air 05/07/19 08:00 99.0 98 16 143/86 (105) 98 05/07/19 07:23 98.1 05/07/19 04:00 98.1 92 20 140/79 (99) 98 05/07/19 04:00 85 05/07/19 03:58 Room Air 05/07/19 00:00 Room Air 05/07/19 00:00 98.2 89 16 142/75 (97) 98 05/06/19 23:45 88 05/06/19 21:05 97 146/78 05/06/19 20:00 Room Air 05/06/19 20:00 98.1 97 20 146/78 (100) 100 05/06/19 19:45 99 05/06/19 16:11 105 05/06/19 16:10 Room Air 05/06/19 16:00 99.6 106 20 154/84 (107) 99 Height (Feet): 5 Height (Inches): 7.00 Weight (Pounds): 174 Objective GENERAL: The patient is awake, alert, anxious. HEENT: Extraocular muscles intact. NECK: No lymphadenopathy noted. CARDIOVASCULAR: S1, S2. Tachycardic. PULMONARY: Mild upper rhonchi with basilar rales. ABDOMEN: Nondistended and nontender. EXTREMITIES: No edema. Microbiology Date/Time Source Procedure Growth Status 05/05/19 22:15 Blood Blood Culture - Preliminary Resulted 05/05/19 22:00 Blood Blood Culture - Preliminary Resulted Laboratory Tests Test 05/07/19 04:30 Sodium Level 136 MMOL/L (136-145) Potassium Level 3.9 MMOL/L (3.5-5.1) Chloride Level 102 MMOL/L (98-107) Carbon Dioxide Level 20 MMOL/L (21-32) L Anion Gap 14 mmol/L (5-15) Blood Urea Nitrogen 3 mg/dL (7-18) L Creatinine 0.8 MG/DL (0.55-1.30) Estimat Glomerular Filtration Rate > 60 mL/min (>60) Glucose Level 256 MG/DL (74-106) H Calcium Level 7.8 MG/DL (8.5-10.1) L Hepatitis A IgM Antibody Pending Hepatitis B Surface Antigen Pending Hepatitis B Core IgM Antibody Pending Hepatitis C Antibody Pending HIV-1 RNA (PCR) log10 Value Pending HIV-1 RNA Ultraquantitative (PCR) Pending Current Medications Medications (Trade) Dose Ordered Sig/Ricky Route PRN Reason Start Time Stop Time Status Last Admin Dose Admin Acetaminophen (Tylenol) 650 mg Q4H PRN ORAL Mild Pain (Pain Scale 1-3) 05/07/19 12:00 06/05/19 00:00 Carvedilol (Coreg) 12.5 mg Q12HR ORAL 05/07/19 21:00 06/05/19 08:59 Chlordiazepoxide (Librium) 5 mg Q8H PRN ORAL For Anxiety 1st choice 05/07/19 15:45 05/13/19 07:44 Chlordiazepoxide (Librium) 20 mg Q8H PRN ORAL For Anxiety 1st choice 05/07/19 15:45 05/13/19 07:29 Dextrose (Dextrose 50%) 25 ml Q30M PRN IV Hypoglycemia 05/07/19 11:30 06/05/19 00:00 Dextrose (Dextrose 50%) 50 ml Q30M PRN IV Hypoglycemia 05/07/19 11:30 06/05/19 00:00 Famotidine (Pepcid) 40 mg DAILY ORAL 05/08/19 09:00 06/05/19 08:59 Influenza Virus Vaccine Quadrival (Flu Vaccine) 0.5 ml ONCE ONCE IM 05/07/19 11:15 05/08/19 07:16 UNV Insulin Aspart (NovoLOG) BEFORE MEALS AND HS SUBQ 05/07/19 11:30 06/05/19 11:29 05/07/19 11:52 Insulin Detemir (Levemir) 8 units Q12HR SUBQ 05/07/19 21:00 06/05/19 08:59 Iohexol (Omnipaque) 100 mg NOW PRN INJ Radiology Procedure 05/07/19 21:30 05/09/19 21:29 Lorazepam (Ativan 2mg/ml 1ml) 1 mg Q6H PRN IV For Anxiety 05/07/19 12:00 05/14/19 11:59 Morphine Sulfate (Morphine Sulfate) 1 mg Q4H PRN IVP Moderate Pain (Pain Scale 4-6) 05/07/19 11:30 05/13/19 07:29 Ondansetron HCl (Zofran) 4 mg Q6H PRN IVP Nausea & Vomiting 05/07/19 12:00 06/05/19 00:00 Pneumococcal Polyvalent Vaccine (Pneumovax) 0.5 ml ONCE ONCE IM 05/07/19 11:15 05/08/19 07:16 UNV Thiamine HCl (Vitamin B1) 100 mg DAILY ORAL 05/08/19 09:00 06/05/19 08:59 Nikky Vogel M.D. May 07, 2019 13:17
[2019-05-07] MEDS: Vancomycin 750mg/NS 275ml IVPB SCH ×2 (14:59)
[2019-05-07] MEDS ORDERED: Vancomycin 1.5gm/NS Premix IVPB ONE (15:00)
[2019-05-07] MEDS ORDERED: chlordiazePOXIDE 5mg Cap ORAL PRN (15:45)
[2019-05-07 16:00] VITALS: BP 155/77
[2019-05-07 20:00] VITALS: BP 147/79
[2019-05-07] MEDS ORDERED: Omnipaue 350mg/ml 100ml vial INJ PRN (21:30)
[2019-05-08] VITALS: BP 129/77
[2019-05-08 04:00] VITALS: BP 146/89
[2019-05-08] MEDS: NovoLOG Insulin Flexpen SUBQ SCH ×4 (05:51→21:03)
[2019-05-08 05:53] LABS: BASOPHILS % (AUTO) 1.4 % (0.0-2.0); EOSINOPHILS % (AUTO) 4.7 % (0.0-3.0); HEMATOCRIT 40.6 % (42.0-52.0); HEMOGLOBIN 14.2 G/DL (14.2-18.0); LYMPHOCYTES % (AUTO) 30.3 % (20.0-45.0); MEAN CORPUSCULAR VOLUME 83 FL (80-99); MONOCYTES % (AUTO) 9.9 % (1.0-10.0); NEUTROPHILS % (AUTO) 53.8 % (45.0-75.0); PLATELET COUNT 121 K/UL (150-450); RED BLOOD COUNT 4.91 M/UL (4.70-6.10); RED CELL DISTRIBUTION WIDTH 12.2 % (11.6-14.8); WHITE BLOOD COUNT 3.6 K/UL (4.8-10.8)
[2019-05-08] MEDS: Morphine Sulfate 2mg/ml Inj(IV/IM USE ONLY) IVP PRN ×2 (05:57→14:09)
[2019-05-08] MEDS: Vancomycin 750mg/NS 275ml IVPB SCH ×4 (06:04→14:12)
[2019-05-08 06:31] LABS: ANION GAP 8 mmol/L (5-15); BLOOD UREA NITROGEN 5 mg/dL (7-18); CALCIUM 8.2 MG/DL (8.5-10.1); CARBON DIOXIDE 27 MMOL/L (21-32); CHLORIDE 103 MMOL/L (98-107); CREATININE 0.7 MG/DL (0.55-1.30); POTASSIUM 3.7 MMOL/L (3.5-5.1); SODIUM 138 MMOL/L (136-145)
[2019-05-08 08:00] VITALS: BP 155/80
[2019-05-08] MEDS: Carvedilol 12.5mg tab ORAL SCH ×2 (08:42→20:57)
[2019-05-08] MEDS: Thiamine 100mg tab ORAL SCH (08:42)
[2019-05-08] MEDS: Levemir Flexpen SUBQ SCH ×2 (08:43→21:02)
[2019-05-08] MEDS ORDERED: Levemir Flexpen SUBQ SCH (09:00)
--- NOTE | 2019-05-08 09:00 | Nephrology Progress Note ---
Assessment/Plan Assessment/Plan: A/P 1. Alcohol withdrawal seizure. - resolved, MRI Brain essentially neg - DC once cleared by ID 2. Hypertension. Stable 3. Diabetes mellitus. metformin and insulin sliding scale, along with Levemir. 4. Staph Bacteremia - appreciate ID. Vanc - DC once cleared by ID 5. Dehydration. DC IVFs 6. GI prophylaxis with famotidine. 7. DVT prophylaxis with SCDs. Subjective Date patient seen: May 08, 2019 Time patient seen: 08:58 ROS Limited/Unobtainable: No Allergies: Coded Allergies: No Known Allergies (Unverified , 05/05/19) Subjective Patient much improved Objective Last 24 Hour Vital Signs Date Time Temp Pulse Resp B/P (MAP) Pulse Ox O2 Delivery O2 Flow Rate FiO2 05/08/19 08:42 96 155/80 05/08/19 08:00 99.0 9 20 155/80 (105) 96 96 05/08/19 04:00 98.8 95 16 146/89 (108) 98 05/08/19 00:00 99.1 89 18 129/77 (94) 96 05/07/19 21:00 Room Air 05/07/19 20:12 96 147/79 05/07/19 20:00 98.2 78 16 147/79 (101) 98 05/07/19 16:00 97.9 90 18 155/77 (103) 98 05/07/19 12:00 Room Air 05/07/19 12:00 98.2 87 18 137/70 (92) 98 05/07/19 09:22 98 143/86 Intake and Output 05/07/19 05/08/19 19:00 07:00 Intake Total 637.5 ml 1500 ml Output Total 800 ml Balance -162.5 ml 1500 ml Intake Oral 500 ml IV Total 137.5 ml Other 1500 ml Output Urine Total 800 ml # Voids 3 3 Laboratory Tests 05/08/19 05:07: White Blood Count 3.6L, Red Blood Count 4.91, Hemoglobin 14.2, Hematocrit 40.6L , Mean Corpuscular Volume 83, Mean Corpuscular Hemoglobin 28.9, Mean Corpuscular Hemoglobin Concent 34.9, Red Cell Distribution Width 12.2, Platelet Count 121L, Mean Platelet Volume 6.3L, Neutrophils (%) (Auto) 53.8, Lymphocytes (%) (Auto) 30.3, Monocytes (%) (Auto) 9.9, Eosinophils (%) (Auto) 4.7H, Basophils (%) (Auto) 1.4, Sodium Level 138, Potassium Level 3.7, Chloride Level 103, Carbon Dioxide Level 27, Anion Gap 8, Blood Urea Nitrogen 5L, Creatinine 0.7, Estimat Glomerular Filtration Rate > 60, Glucose Level 266H, Calcium Level 8.2L Height (Feet): 5 Height (Inches): 7.00 Weight (Pounds): 174 General Appearance: no apparent distress, alert EENT: normal ENT inspection Neck: normal alignment, supple Cardiovascular: normal rate, regular rhythm Respiratory/Chest: lungs clear, normal breath sounds Abdomen: non tender, soft Edema: no edema noted Arm (L), no edema noted Arm (R), no edema noted Leg (L), no edema noted Leg (R), no edema noted Pedal (L), no edema noted Pedal (R), no edema noted Generalized Seth Richmond MD May 08, 2019 09:00
[2019-05-08] MEDS ORDERED: Levemir Flexpen SUBQ ONE (09:30)
[2019-05-08] MEDS ORDERED: Potassium Phosphate 20 MM in NS 275 ML IV ONE (10:00)
[2019-05-08 12:00] VITALS: BP 137/80
--- NOTE | 2019-05-08 12:43 | Infectious Diseases Prog Note ---
Assessment/Plan Assessment/Plan Assessment: New onset seizure- likely from alcohol- ?questionable CVA on MRI -CT head wo: no acute findings -Brain MRI: Questionable tiny acute infarct in the right parietal lobe. This could be artifact.Please correlate clinically. No associated edema or hemorrhage. 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 3.5 x 2.2 x 2 cm right apical opacity linear opacities and interstitial septal thickening. Presence of associated bronchiectasis makes it most likely that this represents an area of confluent fibrosis/cicatrization. However, this could also represent an area of neoplasm or acute infiltrate. There is some central cavitation which probably just represents an area of bronchiectasis, but questionable nodule within the central lucency raises possibility of a fungus ball, so mycotic etiologies should also be considered. Other scattered areas of scarring demonstrated on the right. Nonspecific minimal groundglass opacity is seen in the left lower lobe. Fatty liver -CXR: Right apical masslike opacity. Please refer to subsequent CT scan report. No acute process otherwise -hIV sc neg, hep panel neg hx of pulmonary TB- treated about 10 years ago Dm2 ETOH abuse Plan: -Cont empiric IV Vancomycin #2 for gram positive bacteremia -patient with no cough, fever or leukocytosis -05/06 SP Ceftriaxone #2, Azithromycin #2 -f/u cx -Monitor CBC/CMP, temperatures -f/u sp cx, Fungitell, Asp Ag -f/u REpeat Bcx x2 Thank you for consulting [facility]. Will continue to follow along with you. Discussed with RN. Subjective Allergies: Coded Allergies: No Known Allergies (Unverified , 05/05/19) Subjective afebrile no leukocytosis bacteremic; awaiting ID and repeat bcx Objective Vital Signs Last 24 Hour Vital Signs Date Time Temp Pulse Resp B/P (MAP) Pulse Ox O2 Delivery O2 Flow Rate FiO2 05/08/19 09:00 Room Air 05/08/19 08:42 96 155/80 05/08/19 08:00 99.0 9 20 155/80 (105) 96 96 05/08/19 04:00 98.8 95 16 146/89 (108) 98 05/08/19 00:00 99.1 89 18 129/77 (94) 96 05/07/19 21:00 Room Air 05/07/19 20:12 96 147/79 05/07/19 20:00 98.2 78 16 147/79 (101) 98 05/07/19 16:00 97.9 90 18 155/77 (103) 98 Height (Feet): 5 Height (Inches): 7.00 Weight (Pounds): 174 Objective GENERAL: The patient is awake, alert, anxious. HEENT: Extraocular muscles intact. NECK: No lymphadenopathy noted. CARDIOVASCULAR: S1, S2. Tachycardic. PULMONARY: Mild upper rhonchi with basilar rales. ABDOMEN: Nondistended and nontender. EXTREMITIES: No edema. Microbiology Date/Time Source Procedure Growth Status 05/05/19 22:15 Blood Blood Culture - Preliminary Staphylococcus Species Resulted 05/05/19 22:00 Blood Blood Culture - Preliminary Staphylococcus Species Resulted 05/06/19 17:45 Sputum Induced Gram Stain - Final Resulted 05/06/19 17:45 Sputum Induced Sputum Culture Pending Resulted Laboratory Tests Test 05/08/19 05:07 White Blood Count 3.6 K/UL (4.8-10.8) L Red Blood Count 4.91 M/UL (4.70-6.10) Hemoglobin 14.2 G/DL (14.2-18.0) Hematocrit 40.6 % (42.0-52.0) L Mean Corpuscular Volume 83 FL (80-99) Mean Corpuscular Hemoglobin 28.9 PG (27.0-31.0) Mean Corpuscular Hemoglobin Concent 34.9 G/DL (32.0-36.0) Red Cell Distribution Width 12.2 % (11.6-14.8) Platelet Count 121 K/UL (150-450) L Mean Platelet Volume 6.3 FL (6.5-10.1) L Neutrophils (%) (Auto) 53.8 % (45.0-75.0) Lymphocytes (%) (Auto) 30.3 % (20.0-45.0) Monocytes (%) (Auto) 9.9 % (1.0-10.0) Eosinophils (%) (Auto) 4.7 % (0.0-3.0) H Basophils (%) (Auto) 1.4 % (0.0-2.0) Sodium Level 138 MMOL/L (136-145) Potassium Level 3.7 MMOL/L (3.5-5.1) Chloride Level 103 MMOL/L (98-107) Carbon Dioxide Level 27 MMOL/L (21-32) Anion Gap 8 mmol/L (5-15) Blood Urea Nitrogen 5 mg/dL (7-18) L Creatinine 0.7 MG/DL (0.55-1.30) Estimat Glomerular Filtration Rate > 60 mL/min (>60) Glucose Level 266 MG/DL (74-106) H Calcium Level 8.2 MG/DL (8.5-10.1) L Current Medications Medications (Trade) Dose Ordered Sig/Ricky Route PRN Reason Start Time Stop Time Status Last Admin Dose Admin Acetaminophen (Tylenol) 650 mg Q4H PRN ORAL Mild Pain (Pain Scale 1-3) 05/07/19 12:00 06/05/19 00:00 Carvedilol (Coreg) 12.5 mg Q12HR ORAL 05/07/19 21:00 06/05/19 08:59 05/08/19 08:42 Chlordiazepoxide (Librium) 5 mg Q8H PRN ORAL For Anxiety 1st choice 05/07/19 15:45 05/13/19 07:44 Chlordiazepoxide (Librium) 20 mg Q8H PRN ORAL For Anxiety 1st choice 05/07/19 15:45 05/13/19 07:29 Dextrose (Dextrose 50%) 25 ml Q30M PRN IV Hypoglycemia 05/07/19 11:30 06/05/19 00:00 Dextrose (Dextrose 50%) 50 ml Q30M PRN IV Hypoglycemia 05/07/19 11:30 06/05/19 00:00 Famotidine (Pepcid) 40 mg DAILY ORAL 05/08/19 09:00 06/05/19 08:59 05/08/19 08:42 Influenza Virus Vaccine Quadrival (Flu Vaccine) 0.5 ml ONCE ONCE IM 05/07/19 11:15 05/08/19 07:16 UNV Insulin Aspart (NovoLOG) BEFORE MEALS AND HS SUBQ 05/07/19 11:30 06/05/19 11:29 05/08/19 12:30 Insulin Detemir (Levemir) 11 units Q12HR SUBQ 05/08/19 21:00 06/07/19 20:59 Iohexol (Omnipaque) 100 mg NOW PRN INJ Radiology Procedure 05/07/19 21:30 05/09/19 21:29 Lorazepam (Ativan 2mg/ml 1ml) 1 mg Q6H PRN IV For Anxiety 05/07/19 12:00 05/14/19 11:59 Morphine Sulfate (Morphine Sulfate) 1 mg Q4H PRN IVP Moderate Pain (Pain Scale 4-6) 05/07/19 11:30 05/13/19 07:29 05/08/19 05:57 Ondansetron HCl (Zofran) 4 mg Q6H PRN IVP Nausea & Vomiting 05/07/19 12:00 06/05/19 00:00 Pneumococcal Polyvalent Vaccine (Pneumovax) 0.5 ml ONCE ONCE IM 05/07/19 11:15 05/08/19 07:16 UNV Thiamine HCl (Vitamin B1) 100 mg DAILY ORAL 05/08/19 09:00 06/05/19 08:59 05/08/19 08:42 Vancomycin HCl (Vanco rx to dose) 1 ea DAILY PRN MISC Per rx protocol 05/07/19 13:15 06/06/19 13:14 Vancomycin HCl 750 mg/Sodium Chloride 275 ml @ 183.333 mls/hr Q8H IVPB 05/07/19 23:00 05/12/19 22:59 05/08/19 06:04 Nikky Vogel M.D. May 08, 2019 12:43
--- NOTE | 2019-05-08 13:28 | Pulmonology Progress Note ---
Assessment/Plan Assessment/Plan IMPRESSION: 1. Right upper lobe cavitary lesion. 2. Alcohol dependence. 3. Hypertension. DISCUSSION: Continue present care ID notes reviewed Dc planning Fransico Orta M.D. Subjective Interval Events: None new Constitutional: Reports: no symptoms HEENT: Repors: no symptoms Respiratory: Reports: no symptoms Cardiovascular: Reports: no symptoms Gastrointestinal/Abdominal: Reports: no symptoms Allergies: Coded Allergies: No Known Allergies (Unverified , 05/05/19) Objective Last 24 Hour Vital Signs Date Time Temp Pulse Resp B/P (MAP) Pulse Ox O2 Delivery O2 Flow Rate FiO2 05/08/19 12:00 97.9 101 20 137/80 (99) 99 05/08/19 09:00 Room Air 05/08/19 08:42 96 155/80 05/08/19 08:00 99.0 9 20 155/80 (105) 96 96 05/08/19 04:00 98.8 95 16 146/89 (108) 98 05/08/19 00:00 99.1 89 18 129/77 (94) 96 05/07/19 21:00 Room Air 05/07/19 20:12 96 147/79 05/07/19 20:00 98.2 78 16 147/79 (101) 98 05/07/19 16:00 97.9 90 18 155/77 (103) 98 Intake and Output 05/07/19 05/08/19 19:00 07:00 Intake Total 637.5 ml 1500 ml Output Total 800 ml Balance -162.5 ml 1500 ml Intake Oral 500 ml IV Total 137.5 ml Other 1500 ml Output Urine Total 800 ml # Voids 3 3 General Appearance: no acute distress HEENT: normocephalic Respiratory/Chest: chest wall non-tender, lungs clear Cardiovascular: normal peripheral pulses, normal rate Abdomen: normal bowel sounds Microbiology Date/Time Source Procedure Growth Status 05/05/19 22:15 Blood Blood Culture - Preliminary Staphylococcus Species Resulted 05/05/19 22:00 Blood Blood Culture - Preliminary Staphylococcus Species Resulted 05/06/19 17:45 Sputum Induced Gram Stain - Final Resulted 05/06/19 17:45 Sputum Induced Sputum Culture Pending Resulted Laboratory Tests 05/08/19 05:07: White Blood Count 3.6L, Red Blood Count 4.91, Hemoglobin 14.2, Hematocrit 40.6L , Mean Corpuscular Volume 83, Mean Corpuscular Hemoglobin 28.9, Mean Corpuscular Hemoglobin Concent 34.9, Red Cell Distribution Width 12.2, Platelet Count 121L, Mean Platelet Volume 6.3L, Neutrophils (%) (Auto) 53.8, Lymphocytes (%) (Auto) 30.3, Monocytes (%) (Auto) 9.9, Eosinophils (%) (Auto) 4.7H, Basophils (%) (Auto) 1.4, Sodium Level 138, Potassium Level 3.7, Chloride Level 103, Carbon Dioxide Level 27, Anion Gap 8, Blood Urea Nitrogen 5L, Creatinine 0.7, Estimat Glomerular Filtration Rate > 60, Glucose Level 266H, Calcium Level 8.2L Current Medications Medications (Trade) Dose Ordered Sig/Ricky Route PRN Reason Start Time Stop Time Status Last Admin Dose Admin Acetaminophen (Tylenol) 650 mg Q4H PRN ORAL Mild Pain (Pain Scale 1-3) 05/07/19 12:00 06/05/19 00:00 Carvedilol (Coreg) 12.5 mg Q12HR ORAL 05/07/19 21:00 06/05/19 08:59 05/08/19 08:42 Chlordiazepoxide (Librium) 5 mg Q8H PRN ORAL For Anxiety 1st choice 05/07/19 15:45 05/13/19 07:44 Chlordiazepoxide (Librium) 20 mg Q8H PRN ORAL For Anxiety 1st choice 05/07/19 15:45 05/13/19 07:29 Dextrose (Dextrose 50%) 25 ml Q30M PRN IV Hypoglycemia 05/07/19 11:30 06/05/19 00:00 Dextrose (Dextrose 50%) 50 ml Q30M PRN IV Hypoglycemia 05/07/19 11:30 06/05/19 00:00 Famotidine (Pepcid) 40 mg DAILY ORAL 05/08/19 09:00 06/05/19 08:59 05/08/19 08:42 Influenza Virus Vaccine Quadrival (Flu Vaccine) 0.5 ml ONCE ONCE IM 05/07/19 11:15 05/08/19 07:16 UNV Insulin Aspart (NovoLOG) BEFORE MEALS AND HS SUBQ 05/07/19 11:30 06/05/19 11:29 05/08/19 12:30 Insulin Detemir (Levemir) 11 units Q12HR SUBQ 05/08/19 21:00 06/07/19 20:59 Iohexol (Omnipaque) 100 mg NOW PRN INJ Radiology Procedure 05/07/19 21:30 05/09/19 21:29 Lorazepam (Ativan 2mg/ml 1ml) 1 mg Q6H PRN IV For Anxiety 05/07/19 12:00 05/14/19 11:59 Morphine Sulfate (Morphine Sulfate) 1 mg Q4H PRN IVP Moderate Pain (Pain Scale 4-6) 05/07/19 11:30 05/13/19 07:29 05/08/19 05:57 Ondansetron HCl (Zofran) 4 mg Q6H PRN IVP Nausea & Vomiting 05/07/19 12:00 06/05/19 00:00 Pneumococcal Polyvalent Vaccine (Pneumovax) 0.5 ml ONCE ONCE IM 05/07/19 11:15 05/08/19 07:16 UNV Thiamine HCl (Vitamin B1) 100 mg DAILY ORAL 05/08/19 09:00 06/05/19 08:59 05/08/19 08:42 Vancomycin HCl (Vanco rx to dose) 1 ea DAILY PRN MISC Per rx protocol 05/07/19 13:15 06/06/19 13:14 Vancomycin HCl 750 mg/Sodium Chloride 275 ml @ 183.333 mls/hr Q8H IVPB 05/07/19 23:00 05/12/19 22:59 05/08/19 06:04 Fransico Orta MD May 08, 2019 13:28
[2019-05-08] MEDS ORDERED: D5NS 1000ml IV ONE (13:45)
[2019-05-08 16:00] VITALS: BP 130/84
[2019-05-08 20:00] VITALS: BP 149/83
[2019-05-08] MEDS: Vancomycin 1 GM in NS 275 ML IVPB SCH (21:07)
[2019-05-08] MEDS ORDERED: Vancomycin 1gm in Dextrose 275ml IVPB SCH (22:00)
[2019-05-09] VITALS: BP 132/84
[2019-05-09] MEDS: Morphine Sulfate 2mg/ml Inj(IV/IM USE ONLY) IVP PRN ×2 (02:18→10:13)
[2019-05-09 04:00] VITALS: BP 138/74
[2019-05-09] MEDS: NovoLOG Insulin Flexpen SUBQ SCH ×2 (06:25→12:13)
[2019-05-09] MEDS: Vancomycin 1 GM in NS 275 ML IVPB SCH (06:27)
[2019-05-09 08:00] VITALS: BP 147/77
--- NOTE | 2019-05-09 08:24 | Pulmonology Progress Note ---
Assessment/Plan Assessment/Plan IMPRESSION: 1. Right upper lobe cavitary lesion. 2. Alcohol dependence. 3. Hypertension. DISCUSSION: Continue present care ID notes reviewed; may have chronic findings on CXR Dc planning Fransico Orta M.D. Subjective Interval Events: None new Constitutional: Reports: no symptoms HEENT: Repors: no symptoms Respiratory: Reports: no symptoms Cardiovascular: Reports: no symptoms Gastrointestinal/Abdominal: Reports: no symptoms Genitourinary: Reports: no symptoms Allergies: Coded Allergies: No Known Allergies (Unverified , 05/05/19) Objective Last 24 Hour Vital Signs Date Time Temp Pulse Resp B/P (MAP) Pulse Ox O2 Delivery O2 Flow Rate FiO2 05/09/19 04:00 98.7 87 19 138/74 (95) 97 05/09/19 00:00 99.3 98 20 132/84 (100) 96 05/08/19 21:00 Room Air 05/08/19 20:57 95 149/83 05/08/19 20:00 99.4 86 20 149/83 (105) 94 05/08/19 16:00 97.8 97 19 130/84 (99) 100 05/08/19 12:00 97.9 101 20 137/80 (99) 99 05/08/19 09:00 Room Air 05/08/19 08:42 96 155/80 Intake and Output 05/08/19 05/09/19 19:00 07:00 # Voids 4 2 # Bowel Movements 1 General Appearance: no acute distress HEENT: normocephalic Respiratory/Chest: chest wall non-tender, lungs clear Cardiovascular: normal peripheral pulses, normal rate Abdomen: normal bowel sounds Microbiology Date/Time Source Procedure Growth Status 05/07/19 15:15 Blood Blood Culture - Preliminary NO GROWTH AFTER 24 HOURS Resulted 05/07/19 15:00 Blood Blood Culture - Preliminary NO GROWTH AFTER 24 HOURS Resulted 05/06/19 17:45 Sputum Induced Gram Stain - Final Complete 05/06/19 17:45 Sputum Culture - Final Klebsiella Pneumoniae Usual Upper Respiratory Lizz Complete Laboratory Tests 05/08/19 14:15: Vancomycin Level Trough 7.1 Current Medications Medications (Trade) Dose Ordered Sig/Ricky Route PRN Reason Start Time Stop Time Status Last Admin Dose Admin Acetaminophen (Tylenol) 650 mg Q4H PRN ORAL Mild Pain (Pain Scale 1-3) 05/07/19 12:00 06/05/19 00:00 Carvedilol (Coreg) 12.5 mg Q12HR ORAL 05/07/19 21:00 06/05/19 08:59 05/08/19 20:57 Chlordiazepoxide (Librium) 5 mg Q8H PRN ORAL For Anxiety 1st choice 05/07/19 15:45 05/13/19 07:44 Chlordiazepoxide (Librium) 20 mg Q8H PRN ORAL For Anxiety 1st choice 05/07/19 15:45 05/13/19 07:29 Dextrose (Dextrose 50%) 25 ml Q30M PRN IV Hypoglycemia 05/07/19 11:30 06/05/19 00:00 Dextrose (Dextrose 50%) 50 ml Q30M PRN IV Hypoglycemia 05/07/19 11:30 06/05/19 00:00 Famotidine (Pepcid) 40 mg DAILY ORAL 05/08/19 09:00 06/05/19 08:59 05/08/19 08:42 Influenza Virus Vaccine Quadrival (Flu Vaccine) 0.5 ml ONCE ONCE IM 05/07/19 11:15 05/08/19 07:16 UNV Insulin Aspart (NovoLOG) BEFORE MEALS AND HS SUBQ 05/07/19 11:30 06/05/19 11:29 05/09/19 06:25 Insulin Detemir (Levemir) 11 units Q12HR SUBQ 05/08/19 21:00 06/07/19 20:59 05/08/19 21:02 Iohexol (Omnipaque) 100 mg NOW PRN INJ Radiology Procedure 05/07/19 21:30 05/09/19 21:29 Lorazepam (Ativan 2mg/ml 1ml) 1 mg Q6H PRN IV For Anxiety 05/07/19 12:00 05/14/19 11:59 Morphine Sulfate (Morphine Sulfate) 1 mg Q4H PRN IVP Moderate Pain (Pain Scale 4-6) 05/07/19 11:30 05/13/19 07:29 05/09/19 02:18 Ondansetron HCl (Zofran) 4 mg Q6H PRN IVP Nausea & Vomiting 05/07/19 12:00 06/05/19 00:00 Pneumococcal Polyvalent Vaccine (Pneumovax) 0.5 ml ONCE ONCE IM 05/07/19 11:15 05/08/19 07:16 UNV Thiamine HCl (Vitamin B1) 100 mg DAILY ORAL 05/08/19 09:00 06/05/19 08:59 05/08/19 08:42 Vancomycin HCl (Vanco rx to dose) 1 ea DAILY PRN MISC Per rx protocol 05/07/19 13:15 06/06/19 13:14 Vancomycin HCl 1 gm/Sodium Chloride 275 ml @ 183.708 mls/hr Q8HR IVPB 05/08/19 22:00 05/13/19 21:59 05/09/19 06:27 Fransico Orta MD May 09, 2019 08:24
--- NOTE | 2019-05-09 08:25 | Nephrology Progress Note ---
Assessment/Plan Assessment/Plan: A/P 1. Alcohol withdrawal seizure. - resolved, MRI Brain essentially neg - DC once cleared by ID today 2. Hypertension. Stable 3. Diabetes mellitus. metformin and insulin sliding scale, along with Levemir. - f/u PCP 1 week and continue home DM mgmt 4. Staph Bacteremia - appreciate ID. Vanc - DC once cleared by ID today with final reccs 5. GI prophylaxis with famotidine. 6. DVT prophylaxis with SCDs. Subjective Date patient seen: May 09, 2019 Time patient seen: 08:24 ROS Limited/Unobtainable: No Allergies: Coded Allergies: No Known Allergies (Unverified , 05/05/19) Subjective Patient much improved and feeling back to baseline Objective Last 24 Hour Vital Signs Date Time Temp Pulse Resp B/P (MAP) Pulse Ox O2 Delivery O2 Flow Rate FiO2 05/09/19 04:00 98.7 87 19 138/74 (95) 97 05/09/19 00:00 99.3 98 20 132/84 (100) 96 05/08/19 21:00 Room Air 05/08/19 20:57 95 149/83 05/08/19 20:00 99.4 86 20 149/83 (105) 94 05/08/19 16:00 97.8 97 19 130/84 (99) 100 05/08/19 12:00 97.9 101 20 137/80 (99) 99 05/08/19 09:00 Room Air 05/08/19 08:42 96 155/80 Intake and Output 05/08/19 05/09/19 18:59 06:59 # Voids 4 2 # Bowel Movements 1 Laboratory Tests 05/08/19 14:15: Vancomycin Level Trough 7.1 Height (Feet): 5 Height (Inches): 7.00 Weight (Pounds): 174 General Appearance: no apparent distress, alert EENT: normal ENT inspection Neck: normal alignment, supple Cardiovascular: normal rate, regular rhythm Respiratory/Chest: lungs clear, normal breath sounds Abdomen: non tender, soft Edema: no edema noted Arm (L), no edema noted Arm (R), no edema noted Leg (L), no edema noted Leg (R), no edema noted Pedal (L), no edema noted Pedal (R), no edema noted Generalized Seth Richmond MD May 09, 2019 08:25
--- NOTE | 2019-05-09 08:27 | Discharge Instructions ---
Discharge Instructions Discharge Instructions Services at Discharge: day care Diet: 2 GM sodium (low sodium), diabetic calorie control Resume Normal Activity?: Yes Activity: light activity Follow Up Orders Continue home diabetic care Complete oral antibiotics Follow up primary care physician 1 week For Congestive Heart Failure Reminder Report to your physician any weight gain of 5 pounds or more in one week. Seth Richmond MD May 09, 2019 08:27
[2019-05-09] MEDS: Thiamine 100mg tab ORAL SCH (10:15)
[2019-05-09] MEDS: Carvedilol 12.5mg tab ORAL SCH (10:15)
[2019-05-09] MEDS: Levemir Flexpen SUBQ SCH (10:25)
[2019-05-09 12:00] VITALS: BP 148/82
--- NOTE | 2019-05-09 12:13 | Infectious Diseases Prog Note ---
Assessment/Plan Assessment/Plan Assessment: New onset seizure- likely from alcohol- ?questionable CVA on MRI -CT head wo: no acute findings -Brain MRI: Questionable tiny acute infarct in the right parietal lobe. This could be artifact.Please correlate clinically. No associated edema or hemorrhage. 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 3.5 x 2.2 x 2 cm right apical opacity linear opacities and interstitial septal thickening. Presence of associated bronchiectasis makes it most likely that this represents an area of confluent fibrosis/cicatrization. However, this could also represent an area of neoplasm or acute infiltrate. There is some central cavitation which probably just represents an area of bronchiectasis, but questionable nodule within the central lucency raises possibility of a fungus ball, so mycotic etiologies should also be considered. Other scattered areas of scarring demonstrated on the right. Nonspecific minimal groundglass opacity is seen in the left lower lobe. Fatty liver -CXR: Right apical masslike opacity. Please refer to subsequent CT scan report. No acute process otherwise -hIV sc neg, hep panel neg hx of pulmonary TB- treated about 10 years ago Dm2 ETOH abuse Plan: -D/c empiric IV Vancomycin #3 -ok to discharge off antibiotics -05/06 SP Ceftriaxone #2, Azithromycin #2 -f/u cx -Monitor CBC/CMP, temperatures -f/u sp cx, Fungitell, Asp Ag -f/u REpeat Bcx x2 Thank you for consulting [facility]. Will continue to follow along with you. Discussed with RN. Subjective Allergies: Coded Allergies: No Known Allergies (Unverified , 05/05/19) Subjective afebrile no leukocytosis repeat bcx NTD Objective Vital Signs Last 24 Hour Vital Signs Date Time Temp Pulse Resp B/P (MAP) Pulse Ox O2 Delivery O2 Flow Rate FiO2 05/09/19 10:15 87 147/77 05/09/19 04:00 98.7 87 19 138/74 (95) 97 05/09/19 00:00 99.3 98 20 132/84 (100) 96 05/08/19 21:00 Room Air 05/08/19 20:57 95 149/83 05/08/19 20:00 99.4 86 20 149/83 (105) 94 05/08/19 16:00 97.8 97 19 130/84 (99) 100 Height (Feet): 5 Height (Inches): 7.00 Weight (Pounds): 174 Objective GENERAL: The patient is awake, alert, anxious. HEENT: Extraocular muscles intact. NECK: No lymphadenopathy noted. CARDIOVASCULAR: S1, S2. Tachycardic. PULMONARY: Mild upper rhonchi with basilar rales. ABDOMEN: Nondistended and nontender. EXTREMITIES: No edema. Microbiology Date/Time Source Procedure Growth Status 05/07/19 15:15 Blood Blood Culture - Preliminary NO GROWTH AFTER 24 HOURS Resulted 05/07/19 15:00 Blood Blood Culture - Preliminary NO GROWTH AFTER 24 HOURS Resulted 05/06/19 17:45 Sputum Induced Gram Stain - Final Complete 05/06/19 17:45 Sputum Culture - Final Klebsiella Pneumoniae Usual Upper Respiratory Lizz Complete Laboratory Tests Test 05/08/19 14:15 Vancomycin Level Trough 7.1 ug/mL (5.0-12.0) Current Medications Medications (Trade) Dose Ordered Sig/Ricky Route PRN Reason Start Time Stop Time Status Last Admin Dose Admin Acetaminophen (Tylenol) 650 mg Q4H PRN ORAL Mild Pain (Pain Scale 1-3) 05/07/19 12:00 06/05/19 00:00 Carvedilol (Coreg) 12.5 mg Q12HR ORAL 05/07/19 21:00 06/05/19 08:59 05/09/19 10:15 Chlordiazepoxide (Librium) 5 mg Q8H PRN ORAL For Anxiety 1st choice 05/07/19 15:45 05/13/19 07:44 Chlordiazepoxide (Librium) 20 mg Q8H PRN ORAL For Anxiety 1st choice 05/07/19 15:45 05/13/19 07:29 Dextrose (Dextrose 50%) 25 ml Q30M PRN IV Hypoglycemia 05/07/19 11:30 06/05/19 00:00 Dextrose (Dextrose 50%) 50 ml Q30M PRN IV Hypoglycemia 05/07/19 11:30 06/05/19 00:00 Famotidine (Pepcid) 40 mg DAILY ORAL 05/08/19 09:00 06/05/19 08:59 05/09/19 10:15 Influenza Virus Vaccine Quadrival (Flu Vaccine) 0.5 ml ONCE ONCE IM 05/07/19 11:15 05/08/19 07:16 UNV Insulin Aspart (NovoLOG) BEFORE MEALS AND HS SUBQ 05/07/19 11:30 06/05/19 11:29 05/09/19 06:25 Insulin Detemir (Levemir) 11 units Q12HR SUBQ 05/08/19 21:00 06/07/19 20:59 05/09/19 10:25 Iohexol (Omnipaque) 100 mg NOW PRN INJ Radiology Procedure 05/07/19 21:30 05/09/19 21:29 Lorazepam (Ativan 2mg/ml 1ml) 1 mg Q6H PRN IV For Anxiety 05/07/19 12:00 05/14/19 11:59 Morphine Sulfate (Morphine Sulfate) 1 mg Q4H PRN IVP Moderate Pain (Pain Scale 4-6) 05/07/19 11:30 05/13/19 07:29 05/09/19 10:13 Ondansetron HCl (Zofran) 4 mg Q6H PRN IVP Nausea & Vomiting 05/07/19 12:00 06/05/19 00:00 Pneumococcal Polyvalent Vaccine (Pneumovax) 0.5 ml ONCE ONCE IM 05/07/19 11:15 05/08/19 07:16 UNV Thiamine HCl (Vitamin B1) 100 mg DAILY ORAL 05/08/19 09:00 06/05/19 08:59 05/09/19 10:15 Vancomycin HCl (Vanco rx to dose) 1 ea DAILY PRN MISC Per rx protocol 05/07/19 13:15 06/06/19 13:14 Vancomycin HCl 1 gm/Sodium Chloride 275 ml @ 183.708 mls/hr Q8HR IVPB 05/08/19 22:00 05/13/19 21:59 05/09/19 06:27 Nikky Vogel M.D. May 09, 2019 12:13
--- NOTE | 2019-05-11 18:56 | Discharge Summary ---
Discharge Summary Discharge Summary _ DATE OF ADMISSION: 05/05 DATE OF DISCHARGE: 05/09/2019 DISCHARGED BY: Dr. Seth Richmond CONSULTANTS: Dr. Dianna Vogel BRIEF HOSPITAL COURSE: Patient is a 53-year-old male, who presented to the emergency room for evaluation and care after a seizure. The patient stated he drinks heavily every day. He never had a seizure before. He drinks heavily on a regular basis. He denied any headache, chest pain, nausea, vomiting, diarrhea or shortness of breath. The patient was jittery. He has medical history of hypertension and diabetes mellitus. On evaluation at the ED, blood pressure was elevated to 170/100, heart rate 130. Blood work did not show any leukocytosis. Hemoglobin and hematocrit were stable. Glucose was 305. Anion gap 23. Carbon dioxide 16. Serum alcohol was 286. ABG showed signs of acidosis. Chest x-ray showed increased right upper lobe markings. CT of the chest did not show any evidence of acute pulmonary embolus or acute thoracic vascular pathology. Right apical linear opacity and interstitial septal thickening. He was started empirically on IV antibiotics. He was then admitted for evaluation of alcohol withdrawal seizure and pneumonia. He was given IV hydration. He was placed on Librium and Ativan. He was given thiamine and folate to avoid Warnicke Korsakoff syndrome. Blood glucose was monitored. He was placed on metformin and insulin sliding scale along with Levemir. He was given GI prophylaxis with famotidine. Tank Worker and ID were consulted. Patient has history of pulmonary TB treated [address] showed cavitary lesion with fibrosis, likely residual from prior pulmonary team which was treated. Patient did not have any cough, night sweats, fever or weight loss. He was empiric ceftriaxone and azithromycin for possible pneumonia. Per ID, monitor off antibiotics. MRI of the brain was essentially negative. Blood culture showed, gram-positive bacteremia. He was started empirically on IV vancomycin. HIV and hepatitis panel negative. Repeat blood culture did not isolate any growth. Sputum culture showed growth of Klebsiella and usual upper respiratory steven. There was no further seizure episode. He was cleared for discharge home. FINAL DIAGNOSES: Alcohol withdrawal seizure Gram-positive bacteremia Hypertension History of pulmonary TB treated 10 years ago Diabetes type 2 EtOH abuse DISPOSITION: Patient was discharged home. DISCHARGE INSTRUCTIONS: Follow-up in a week. I have been assigned to complete a discharge summary on this account, I was not involved with the patient's management.--SATHYA Sal Jacqueline Robles NP May 11, 2019 18:56
== END 2019-05-09 15:12 | disposition home or self-care (01) | DRG 775 ==
LOC: EDBD 19:15 → EMR 20:30 → 2W 23:13 → EDBEDREQ 23:59 → 2W 05-06 13:11 → 4E 05-07 11:10
DX: F10.239 Alcohol dependence with withdrawal, unspecified (principal); G40.89 Other seizures; F10.20 Alcohol dependence, uncomplicated; K70.0 Alcoholic fatty liver; Y90.8 Blood alcohol level of 240 mg/100 ml or more; R78.81 Bacteremia; E87.2 Acidosis; E86.0 Dehydration; I10 Essential (primary) hypertension; E11.9 Type 2 diabetes mellitus without complications; Z79.4 Long term (current) use of insulin; Z86.11 Personal history of tuberculosis
CPT/HCPCS: 36415; 36600; 70450; 70551; 71045; 71275; 80048; 80053; 80202; 82803; 82962; 83605; 83735; 84100; 85025; 86703; 86705; 86709; 86803; 87040; 87070; 87181; 87205; 87340; 87536; 90689; 90732; 93005; 96361; 96374; 96375; 99285; G0480; J1815; J2405; J7030; S5561